=== PATIENT | female | born 1965 | race Caucasian/White ===

== ENCOUNTER 2019-01-30 10:21 | Emergency (ER) | payer MEDICARE, MEDICAID ==
[2019-01-30 11:07] LABS: Bilirubin Negative (Negative); Blood, Urine Trace (Negative); Clarity Clear (Clear); Glucose, Urine (Dipstick) Negative (Negative); Leukocyte Negative (Negative); Nitrite Negative (Negative); Protein, Urine (Dipstick) Negative (Neg-Trace); Urobilinogen 0.2 mg/dL (Less than 2)
[2019-01-30 11:18] LABS: WBC/HPF 0-3 HPF (0-3)
[2019-01-30 11:19] LABS: Bacteria/HPF Rare-Few HPF (None Seen); Squamous Epithelial 0-3 HPF (0-3)
[2019-01-30] MEDS ORDERED: Ondansetron ODT 4 MG TAB ONE (11:32)
[2019-01-30] MEDS ORDERED: AMOXicillin 250 MG CAP ONE (11:32)
[2019-01-30] MEDS ORDERED: Ketorolac Tromethamine 60 MG/2 ML VIAL ONE (11:32)
--- NOTE | 2019-01-30 12:10 | CT ---
CT OF THE ABDOMEN AND PELVIS WITHOUT IV CONTRAST INDICATION: Left-sided flank pain COMPARISON: CT the abdomen and pelvis dated July 12, 2018 FINDINGS: This examination is limited for the evaluation of solid organs and vascular structures due to the lac k of intravenous contrast. ABDOMEN: Lung bases: Clear Liver: No focal lesion. Gallbladder: Normal appearing. Pancreas: Normal. Adrenal glands: Normal. Spleen: Normal. Kidneys and ureters: There is stable cortical thinning involving the inferior pole of the left kidney . There is stable postsurgical change of a pyeloplasty. No focal renal lesion is evident. No renal or ureteral calculus is evident. No hydronephrosis is demonstrated. Vasculature: There are mild vascular calcifications seen involving the visualized vasculature. Lymph nodes:No pathologically enlarged lymph nodes are evident. Free fluid in abdomen:No free fluid is evident. PELVIS: Small and large bowel: Normal Appendix:Normal Bladder: Normal. Rectal and perirectal soft tissues:Normal. Reproductive structures: Normal. Free fluid in pelvis: No free fluid is evident. Lymphadenopathy pelvis: No lymphadenopathy is evident. Osseous structures: No acute osseous abnormality. No destructive osteolytic or osteoblastic lesion i s identified. There is scattered degenerative and osteoarthritic changes. Soft tissues:Normal. IMPRESSION: 1. No acute abnormality.
== END 2019-01-30 12:30 | disposition home or self-care (01) ==
LOC: NAV ERS 10:21
DX: R10.9 Unspecified abdominal pain (principal); M19.90 Unspecified osteoarthritis, unspecified site; F41.9 Anxiety disorder, unspecified; K02.9 Dental caries, unspecified; K04.7 Periapical abscess without sinus; Z87.442 Personal history of urinary calculi; Z79.82 Long term (current) use of aspirin; Z79.899 Other long term (current) drug therapy
CPT/HCPCS: 74176; 81003; 81015; 96372; J1885; Q0162

== ENCOUNTER 2019-07-29 14:58 | Emergency (ER) | payer MEDICARE, OTHER ==
--- NOTE | 2019-07-29 15:34 | RAD ---
Exam: XR Finger(s) Rt Min 2 View HISTORY: Injury to right small finger pain COMPARISON: None FINDINGS: There is dislocation at the proximal interphalangeal joint of the right small finger. The middle phal anx is dislocated dorsally and slightly medially with respect to the proximal phalanx. A tiny radiopaque density is present dorsal to the distal aspect of the proximal phalanx. This could represe nt a tiny radiopaque foreign body versus tiny osseous density. This does appear remote from the level of the dislocation, but a tiny avulsion injury cannot be entirely excluded. IMPRESSION: 1. Dislocation proximal interphalangeal joint right small finger. 2. Tiny linear radiopaque density dorsal to the distal portion of the proximal phalanx. While this do es appear more remote than expected for an avulsion injury at site of dislocation, a very tiny avulsion injury cannot be entirely excluded. This could represent a tiny radiopaque foreign body.
[2019-07-29] MEDS ORDERED: Lidocaine 1% (PF) 30 ML VIAL ONE (15:41)
--- NOTE | 2019-07-29 19:08 | RAD ---
RIGHT FINGER TWO VIEWS: 07/29/19 HISTORY: Post reduction for right fifth digit dislocation. FINDINGS/IMPRESSION: Interval reduction of the dislocation at the PIP joint of the right small finger is seen since earlie r exam of 3:17 p.m. from the same date. Anatomic alignment has been restored. POS: [facility]
== END 2019-07-29 16:30 | disposition home or self-care (01) ==
LOC: NAV ERS 14:58
DX: S63.286A Dislocation of proximal interphalangeal joint of right little finger, initial encounter (principal); M19.90 Unspecified osteoarthritis, unspecified site; F31.9 Bipolar disorder, unspecified; F41.9 Anxiety disorder, unspecified; M47.9 Spondylosis, unspecified; Z79.82 Long term (current) use of aspirin; Z79.899 Other long term (current) drug therapy; W23.0XXA Caught, crushed, jammed, or pinched between moving objects, initial encounter
CPT/HCPCS: 26770; J2001